=== PATIENT | female | born 2005 | race Caucasian/White ===

== ENCOUNTER 2023-04-15 12:14 | Emergency (ER) | payer OTHER ==
[~2023-04-15] VITALS: Ht 154.9 cm; Wt 61.2 kg
[2023-04-15 12:27] VITALS: BP 108/87
[2023-04-15] MEDS ORDERED: Mupirocin22 GM TOP (12:59)
== END 2023-04-15 13:06 | disposition home or self-care (01) ==
LOC: ER 12:14
DX: L02.214 Cutaneous abscess of groin (principal)
CPT/HCPCS: 99283

== ENCOUNTER 2023-05-24 15:44 | Emergency (ER) | payer OTHER ==
[~2023-05-24] VITALS: Ht 157.5 cm; Wt 61.2 kg
[~2023-05-24 15:44] MED LIST: Mupirocin22 GM TOP
[2023-05-24 16:18] VITALS: BP 113/80
[2023-05-24] MEDS ORDERED: FLUO10 PO (16:19)
[2023-05-24] MEDS ORDERED: Budeprion Xl300 MG PO (16:19)
== END 2023-05-24 16:52 | disposition home or self-care (01) ==
LOC: ER 15:44
DX: S01.81XA Laceration without foreign body of other part of head, initial encounter (principal); F32.A Depression, unspecified; Z79.899 Other long term (current) drug therapy; W01.198A Fall on same level from slipping, tripping and stumbling with subsequent striking against other object, initial encounter; Y92.009 Unspecified place in unspecified non-institutional (private) residence as the place of occurrence of the external cause
CPT/HCPCS: 99283